=== PATIENT | female | born 1935 | race African-American/Black ===

== ENCOUNTER 2018-06-13 00:12 | Inpatient (IN) | payer OTHER ==
[~2018-06-13] VITALS: Ht 177.8 cm; Wt 98.6 kg
[2018-06-13] MEDS ORDERED: SODIUM CHLORIDE 0.9% 1000ML BAG (SEPSIS BOLUS) IV ONE (00:45)
[2018-06-13] MEDS ORDERED: LEVOFLOXACIN 750MG PREMIX 150 ML IV ONE (00:45)
[2018-06-13] MEDS ORDERED: ACETAMINOPHEN 650MG SUPP PR ONE (01:30)
[2018-06-13 01:58] LABS: HEMATOCRIT. 33.4 % (36.0-48.0); HEMOGLOBIN. 10.7 g/dL (12.0-16.0); MEAN CORPUSCULAR HEMOGLOBIN 26.1 pg (28.0-32.0); MEAN CORPUSCULAR VOLUME 81.6 fL (81.0-99.0); MEAN PLATELET VOLUME 7.2 fl (7.4-10.4); PLATELET 517 x1000/uL (130-400); RED BLOOD CELL COUNT 4.09 mill/uL (4.2-5.4); RED CELL DISTRIBUTION WIDTH 16.4 % (11.6-14.6)
[2018-06-13 02:00] LABS: CHLORIDE 91 mEq/L (98-107)
[2018-06-13 02:02] LABS: CLARITY URINE CLOUDY (CLEAR); COLOR URINE DARK YELLOW (YELLOW); KETONES URINE NEGATIVE (NEGATIVE); LEUKOCYTE ESTERASE URINE NEGATIVE (NEGATIVE); NITRITE URINE NEGATIVE (NEGATIVE); OCCULT BLOOD URINE 1+ (NEGATIVE); PROTEIN URINE 2+ (NEGATIVE); SPECIFIC GRAVITY URINE 1.018 (1.005-1.030); UROBILINOGEN URINE 0.2 E.U./dL (0.2-1.0)
[2018-06-13 02:04] LABS: PARTIAL THROMBOPLASTIN TIME 34.2 sec (23.4-31.0)
[2018-06-13 04:16] LABS: PLATELET ESTIMATE INCREASED
[2018-06-13 04:24] VITALS: BP 151/78
[2018-06-13] MEDS ORDERED: AMLO5TAB88 PO (05:29)
[2018-06-13] MEDS ORDERED: ATEN50TA PO (05:29)
[2018-06-13] MEDS ORDERED: LEVOFLOXACIN 500MG PREMIX 100 ML IV SCH (06:30)
[2018-06-13 08:00] VITALS: BP 158/68
[2018-06-13] MEDS: IPRATROPIUM/ALBUTEROL 0.5-3(2.5)MG/3ML NEB HHN SCH ×3 (08:17→16:16)
[2018-06-13] MEDS ORDERED: NA PHOS,M-B/NA PHOS,DI-BA ENEMA 118ML PR PRN (09:30)
[2018-06-13] MEDS ORDERED: ENOXAPARIN 40MG/0.4ML SYR SUBCUT SCH (09:30)
[2018-06-13] MEDS ORDERED: HYDROCODONE/ACETAMINOPHEN 5/325MG TABLET PO PRN (09:30)
[2018-06-13] MEDS ORDERED: MAGNESIUM/ALUMINUM HYDROXIDE/SIMETHICONE 30ML UDC PO PRN (09:30)
[2018-06-13] MEDS ORDERED: DOCUSATE SODIUM 100MG CAPSULE PO PRN (09:30)
[2018-06-13] MEDS ORDERED: HYDROCODONE/ACETAMINOPHEN 10/325MG TABLET PO PRN (09:30)
[2018-06-13] MEDS ORDERED: ACETAMINOPHEN 650MG SUPP PR PRN (09:30)
[2018-06-13] MEDS ORDERED: CLONIDINE 0.1MG TABLET PO PRN (09:30)
[2018-06-13] MEDS ORDERED: GUAIFENESIN 200MG/10ML SUGAR FREE UDC PO PRN (09:30)
[2018-06-13] MEDS ORDERED: IPRATROPIUM/ALBUTEROL 0.5-3(2.5)MG/3ML NEB INH PRN (09:30)
[2018-06-13] MEDS ORDERED: ACETAMINOPHEN 325MG TABLET PO PRN (09:30)
[2018-06-13] MEDS ORDERED: DIPHENHYDRAMINE 50MG/ML VIAL IV PRN (09:30)
[2018-06-13] MEDS ORDERED: ONDANSETRON HCL 4MG/2ML INJ IV PRN (09:30)
[2018-06-13] MEDS ORDERED: ACETAMINOPHEN 650MG/20.3ML UDC GT PRN (09:30)
[2018-06-13] MEDS ORDERED: ENOXAPARIN 30MG/0.3ML SYR SUBCUT SCH (09:58)
[2018-06-13 12:00] VITALS: BP 177/87
[2018-06-13 12:47] LABS: CHLORIDE 98 mEq/L (98-107)
[2018-06-13] MEDS ORDERED: ATENOLOL 50 MG TABLET PO SCH (12:54)
[2018-06-13 12:55] LABS: HEMATOCRIT. 33.3 % (36.0-48.0); HEMOGLOBIN. 10.4 g/dL (12.0-16.0); MEAN CORPUSCULAR VOLUME 83.4 fL (81.0-99.0); MEAN PLATELET VOLUME 7.1 fl (7.4-10.4); PLATELET 404 x1000/uL (130-400); RED CELL DISTRIBUTION WIDTH 15.8 % (11.6-14.6)
[2018-06-13] MEDS ORDERED: MEDICATION NOT ON FORMULARY EA (Atenolol 50 MG) PO SCH (13:00)
[2018-06-13] MEDS ORDERED: MEDICATION NOT ON FORMULARY EA (Amlodipine Besylate 5 MG) PO SCH (13:00)
[2018-06-13] MEDS ORDERED: SODIUM CHLORIDE 0.9% 1,000 ML IV SCH (13:00)
[2018-06-13 13:35] LABS: PLATELET ESTIMATE SLIGHTLY INCREASED
[2018-06-13] MEDS ORDERED: AMLODIPINE 5MG TABLET PO SCH (13:48)
[2018-06-13] MEDS ORDERED: SODIUM CHLORIDE 0.9% INJ 3ML FLUSH IVF SCH (14:00)
[2018-06-13 16:00] VITALS: BP 115/70
[2018-06-13] MEDS ORDERED: METHYLPREDNISOLONE SOD SUCC 40 MG/ML VIAL IV SCH (16:00)
[2018-06-13] MEDS ORDERED: DIPHENHYDRAMINE 50MG/ML VIAL IV SCH (16:08)
[2018-06-13 17:40] VITALS: BP 115/70
[2018-06-13] MEDS ORDERED: FAMOTIDINE 20MG/2ML VIAL IV SCH (21:00)
[2018-06-14] MEDS ORDERED: LEVOFLOXACIN 750MG PREMIX 150 ML IV SCH (23:00)
== END 2018-06-13 18:20 | disposition short-term general hospital (02) | DRG 177 ==
LOC: ER 00:12 → 5EST 02:21 → ENRESERV 02:41 → ER 03:45 → 7WST 04:40
PROVIDERS: ADMIT Family Medicine; ATTEND Family Medicine
DX: J69.0 Pneumonitis due to inhalation of food and vomit (principal); G93.41 Metabolic encephalopathy; E43 Unspecified severe protein-calorie malnutrition; J96.00 Acute respiratory failure, unspecified whether with hypoxia or hypercapnia; E87.1 Hypo-osmolality and hyponatremia; J90 Pleural effusion, not elsewhere classified; C78.00 Secondary malignant neoplasm of unspecified lung; T78.3XXA Angioneurotic edema, initial encounter; C14.0 Malignant neoplasm of pharynx, unspecified; C02.9 Malignant neoplasm of tongue, unspecified; R73.9 Hyperglycemia, unspecified; E83.52 Hypercalcemia; I11.9 Hypertensive heart disease without heart failure; Z92.3 Personal history of irradiation; Z92.21 Personal history of antineoplastic chemotherapy; Z79.899 Other long term (current) drug therapy; Z68.31 Body mass index [BMI] 31.0-31.9, adult
CPT/HCPCS: 36415; 71045; 82962; 83605; 84145; 84484; 87077; 87186; 93005; 94640; 96365; 96366; 96375; 97162; 97166; 99285; A6261; J1200; J1650; J1956; J2920; J7030; J7620